=== PATIENT | male | born 2000 | race Caucasian/White ===

== ENCOUNTER 2021-03-15 19:27 | Emergency (ER) | payer OTHER ==
[~2021-03-15] VITALS: Ht 157.5 cm; Wt 56.7 kg
--- NOTE | 2021-03-15 19:32 | NUR ---
pt bibself c/o left wrist lac. Pt aaox4 breathing evenly and unlabored. Pt states he was "sharpening a knife when it slipped and cut him". Lac is approx 4cm long, emt at bedside for wound care. Pt skin warm and dry. Pt attached to monitor and pox. Pt given blanket and call light within reach
[2021-03-15] MEDS ORDERED: LIDOCAINE 1%-EPI 1:100,000 20 ML VIAL ONE (20:16)
[2021-03-15] MEDS ORDERED: CEPH500T PO (21:17)
[2021-03-15] MEDS ORDERED: IBUP-1955 PO (21:17)
--- NOTE | 2021-03-15 21:23 | NUR ---
Patient discharged to home in stable condition. Written and verbal after care instructions given. Patient verbalizes understanding of instruction. Pt ambulatory with a steady gait
[2021-03-15 21:28] VITALS: BP 118/77
== END 2021-03-15 21:23 | disposition home or self-care (01) ==
LOC: ER 19:27
DX: S61.412A Laceration without foreign body of left hand, initial encounter (principal); W26.0XXA Contact with knife, initial encounter; Y93.89 Activity, other specified; Y92.89 Other specified places as the place of occurrence of the external cause; Y99.0 Civilian activity done for income or pay
CPT/HCPCS: 12002; 99283; A4649; J3490

== ENCOUNTER 2021-03-26 06:27 | Emergency (ER) | payer OTHER ==
[~2021-03-26] VITALS: Ht 157.5 cm; Wt 59.0 kg
[~2021-03-26 06:27] MED LIST: CEPH500T PO; IBUP-1955 PO
[2021-03-26 06:30] VITALS: BP 124/77
== END 2021-03-26 07:02 | disposition home or self-care (01) ==
LOC: ER 06:30
DX: S61.512D Laceration without foreign body of left wrist, subsequent encounter (principal); Z79.899 Other long term (current) drug therapy; X58.XXXD Exposure to other specified factors, subsequent encounter